=== PATIENT | female | born 2000 | race African-American/Black ===

== ENCOUNTER 2023-04-21 13:35 | Emergency (ER) | payer OTHER ==
[2023-04-21] MEDS ORDERED: KETOROLAC TROMETHAMINE 30 MG/1 ML VIAL IM ONE (13:40)
[2023-04-21] MEDS ORDERED: KETOROLAC TROMETHAMINE 30 MG/1 ML VIAL ONE (13:55)
[2023-04-21 13:56] VITALS: BP 110/79; PULSE 93; RESP 18; TEMP 97.9; BMI 17.6
== END 2023-04-21 14:50 | disposition home or self-care (01) ==
LOC: FER 13:35
PROC: 3E0233Z Introduction of Anti-inflammatory into Muscle, Percutaneous Approach (ICD-10-PCS; principal; 2023-04-21)
DX: S60.912A Unspecified superficial injury of left wrist, initial encounter (principal); M25.532 Pain in left wrist; W20.8XXA Other cause of strike by thrown, projected or falling object, initial encounter
CPT/HCPCS: 73110-TC-LT-FY; 99284-25